=== PATIENT | female | born 2000 | race Native Hawaiian/Other Pacific Islander ===

== ENCOUNTER 2022-03-01 10:19 | Outpatient (CLI) | payer SELFPAY ==
[2022-03-01 16:37] LABS: Cholesterol* 207 mg/dL (90-199)
[2022-03-01 16:38] LABS: Glucose* 97 mg/dL (60-115); HDL Cholesterol* 40 mg/dL (>=50); LDL Cholesterol Calculated 144 mg/dL (<100); Triglycerides* 113 mg/dL (40-149)
== END 2022-03-01 10:20 | disposition home or self-care (01) ==
PROVIDERS: PCP Family Medicine; Visit Provider Family Medicine
DX: Z01.419 Encounter for gynecological examination (general) (routine) without abnormal findings (principal); E28.2 Polycystic ovarian syndrome; Z13.1 Encounter for screening for diabetes mellitus; Z13.6 Encounter for screening for cardiovascular disorders; F32.9 Major depressive disorder, single episode, unspecified
CPT/HCPCS: 80061; 82947

== ENCOUNTER 2022-03-22 15:14 | Outpatient (CLI) | payer SELFPAY ==
[2022-03-22 15:38] LABS: Hemoglobin* 13.9 gm/dL (12.0-16.0)
== END 2022-03-22 15:15 | disposition home or self-care (01) ==
LOC: NFLDREF 15:15
PROVIDERS: PCP Family Medicine; Visit Provider Family Medicine
DX: F32.9 Major depressive disorder, single episode, unspecified (principal)
CPT/HCPCS: 84443; 85018

== ENCOUNTER 2022-04-07 10:01 | Outpatient (CLI) | payer OTHER, SELFPAY ==
[2022-04-11 23:09] LABS: Estradiol Premenol Female 73 pg/mL
[2022-04-14 22:39] LABS: 17-Hydroxyprogesterone HPLC 54.04 ng/dL (<=206.00)
== END 2022-04-07 10:02 | disposition home or self-care (01) ==
PROVIDERS: PCP Family Medicine; Visit Provider Registered Nurse
DX: N97.0 Female infertility associated with anovulation (principal); E28.2 Polycystic ovarian syndrome; N91.2 Amenorrhea, unspecified; Z12.4 Encounter for screening for malignant neoplasm of cervix; Z31.41 Encounter for fertility testing
CPT/HCPCS: 82670; 83498; 87624

== ENCOUNTER 2022-04-14 16:07 | Outpatient (CLI) | payer OTHER, SELFPAY ==
--- NOTE | 2022-04-14 16:00 | CRLHL7_ITS ---
For Patients: As a result of the Century Cures Act, medical imaging exams and procedure reports are released immediately into your electronic medical record. You may view this report before your referring provider. If you have questions, please contact your health care provider. CLINICAL HISTORY: Amenorrhea TECHNIQUE: Real time, holm scale images were acquired of the pelvis using a transabdominal and transvaginal approach. Color Doppler analysis was performed of the ovaries. FINDINGS: The uterus measures 9.1 x 5.2 x 5. 7 centimeters. Endometrium measures 7 millimeters. The right ovary measures 4.2 x 2.9 x 3 centimeters. The left ovary measures 3.1 x 2.4 x 2. 7 centimeters. There may be small peripheral follicles within the ovaries. Ovaries are suboptimally seen. IMPRESSION: 1. 7 millimeter endometrial stripe. 2. Ovaries are suboptimally seen however there is suggestion of small peripheral follicles which can be seen with PCOS. Dictated by Kimmie Dewitt MD @ 04/16/2022 6:32:05 AM (Electronically Signed)
== END 2022-04-14 16:08 | disposition home or self-care (01) ==
LOC: US 16:08
PROVIDERS: PCP Family Medicine; Visit Provider Registered Nurse
DX: N91.2 Amenorrhea, unspecified (principal)
CPT/HCPCS: 76830; 76856

== ENCOUNTER 2022-06-03 09:58 | Outpatient (CLI) | payer OTHER, SELFPAY ==
[2022-06-04 14:51] LABS: Estradiol Premenol Female 48 pg/mL
[2022-06-04 16:49] LABS: Follicle Stimulating Hormone 5.5 IU/L; Luteinizing Hormone, Serum 8.7 IU/L
== END 2022-06-03 09:59 | disposition home or self-care (01) ==
PROVIDERS: PCP Family Medicine; Visit Provider Registered Nurse
DX: N91.2 Amenorrhea, unspecified (principal); N97.0 Female infertility associated with anovulation; E66.01 Morbid (severe) obesity due to excess calories
CPT/HCPCS: 36415; 82670; 83001; 83002

== ENCOUNTER 2022-06-09 09:44 | Outpatient (CLI) | payer OTHER, SELFPAY ==
--- NOTE | 2022-06-09 10:15 | CRLHL7_ITS ---
For Patients: As a result of the Century Cures Act, medical imaging exams and procedure reports are released immediately into your electronic medical record. You may view this report before your referring provider. If you have questions, please contact your health care provider. Technique: Hysterosalpingogram performed in routine fashion. Fluoroscopy time 1 minutes 14 seconds. Indication: Infertility Comparison: None. Findings: Normal endometrial canal without filling defect. Fallopian tubes are not opacified. Impression: Non opacification of the fallopian tubes bilaterally. Dictated by Manuel Fraser MD @ 06/09/2022 11:59:13 AM (Electronically Signed)
--- NOTE | 2022-06-09 12:29 | W.PM.GYNPROC ---
Procedure Note Time Seen by Provider: 10:30 Date Seen: 06/09/22 Procedure Details: DATE: 06/09/2022 PREPROCEDURE DIAGNOSIS: Secondary infertility POSTPROCEDURE DIAGNOSIS: 1. Secondary Infertility 2. Blocked fallopian tubes bilaterally. NAME OF PROCEDURE: Hysterosalpingogram. ANESTHESIA: None. COMPLICATIONS: None. PROCEDURE: After obtaining consent, the patient was placed in the supine position on the x-ray table. An open-sided bivalve speculum was introduced into the vagina and the cervix easily visualized. The cervix and vagina were then prepped with Betadine. The anterior lip of the cervix was grasped with a single-tooth tenaculum for traction. Os binder/cervical dilator used: No. A balloon tipped double-lumen catheter was then gently inserted through the cervical opening into the uterine cavity. The balloon was insufflated with 3 mL of air. The tenaculum and speculum were removed. The patient was repositioned in the supine position, covered, and the radiologist was called to the room. A hysterosalpingogram was then performed. A total of 20 cc of Optiray 300 water soluble contrast dye was injected through the double-lumen catheter under moderate pressure x 2. There was immediate fill of the uterine cavity to the cornua but none opacification of the fallopian tubes bilaterally x 2. The balloon was deflated. The catheter was removed. The patient tolerated the procedure well, though she did have moderate cramping discomfort during and just after the procedure. She was discharged to home in stable condition and make an appointment with her physician to review all of her lab results and procedure results.
== END 2022-06-09 09:45 | disposition home or self-care (01) ==
PROVIDERS: PCP Family Medicine; Visit Provider Obstetrics & Gynecology
DX: N97.0 Female infertility associated with anovulation (principal)
CPT/HCPCS: 58340; 74740; A4649; Q9967

== ENCOUNTER 2022-06-21 08:53 | Outpatient (CLI) | payer OTHER, SELFPAY ==
[2022-06-25 15:49] LABS: Progesterone, HPLC-MS/MS <0.10 ng/mL
== END 2022-06-21 08:54 | disposition home or self-care (01) ==
LOC: NFLDREF 08:54
PROVIDERS: PCP Family Medicine; Visit Provider Registered Nurse
DX: Z31.9 Encounter for procreative management, unspecified (principal)
CPT/HCPCS: 84144